=== PATIENT | male | born 1990 | race Two or more races ===

== ENCOUNTER 2016-12-04 11:42 | Emergency (ER) | payer MEDICAID ==
[2016-12-04 11:52] VITALS: RESP 16; TEMP 98.6
--- NOTE | 2016-12-04 11:58 | EDPHY ---
H & P Time Seen by Provider: 12/04/16 11:52 HPI/ROS: CHIEF COMPLAINT: Left knee swelling and pain HISTORY OF PRESENT ILLNESS: Patient is a 26-year-old male who presents emergency department with ongoing left knee swelling and pain. The patient fell skateboarding 3 days ago. "I landed on my left knee - it took the brunt of the fall." She has mild discomfort with ambulation. He is able to range his left knee with mild discomfort. He has no numbness or tingling. He did not strike his head. No loss of consciousness. No neck or back pain. REVIEW OF SYSTEMS: My complete review of systems is negative except as mentioned in the HPI. Past Medical/Surgical History: Negative Past surgical history: Negative Smoking Status: Former smoker Physical Exam: Vitals noted GENERAL: Well-appearing, in no acute distress, alert. HEAD: No evidence of trauma. EYES: PERRLA, EOMI, normal to inspection. ENT: Airway intact, normal external examination. NECK: The C-spine is nontender. NEXUS criteria is negative (no midline tenderness, no distracting injury, no altered mental status, no recent alcohol use, no focal neurologic deficit). RESPIRATORY: Clear to auscultation bilaterally, no rales, rhonchi or wheezing. CVS: Regular rate and rhythm, no rubs, murmurs, or gallops. ABDOMEN: Soft, nontender. Pelvis: Stable. No tenderness palpation. Hips full range of motion. BACK: Normal to inspection, no spinal tenderness, no spinal step off. SKIN: Normal color, warm, dry. No pallor or diaphoresis. EXTREMITIES: Right upper extremity: Atraumatic. No visible signs of trauma. No tenderness palpation. Neurovascular intact distally. Left upper extremity: Atraumatic. No visible signs of trauma. No tenderness palpation. Neurovascular intact distally. Right lower extremity: Small healing abrasion to right knee. No patellar tenderness. No tenderness palpation. Neurovascular intact distally. Left lower extremity: Patient has significant swelling around his left knee. Ecchymosis extends over his knee up his medial thigh. There is mild patellar tenderness palpation. Neurovascular intact distally. Atraumatic, neurovascularly intact distally in all extremities, pelvis is stable , hips with full range of motion, moves all extremities freely. NEURO/PSYCH: Alert and oriented, normal mood and affect, no focal deficits Constitutional: Initial Vital Signs Temperature (C) 37 C 12/04/16 11:44 Heart Rate 68 12/04/16 11:44 Respiratory Rate 16 12/04/16 11:44 Blood Pressure 155/76 H 12/04/16 11:44 O2 Sat (%) 97 12/04/16 11:44 O2 Delivery Mode Room Air Allergies/Adverse Reactions: No Known Allergies Allergy (Verified 12/04/16 11:51) Home Medications: Medication Instructions Recorded NK [No Known Home Meds] 12/04/16 Medical Decision Making - Diagnostics Imaging Results: Imaging Impressions Knee X-Ray 12/04/16 11:54 Impression: Extensive soft tissue swelling with no acute osseous findings. ED Course/Re-evaluation: In the emergency department I discussed possible etiologies with the patient. He consented to an x-ray of his left knee. Left knee x-ray was ordered. Left knee x-ray: Please refer the dictated report. Soft tissue swelling. No fracture. I discussed the result with the patient. I answered all his questions. I offered him drainage of the fluid. He refused this point. Was given an Yasmani wrap. He is given instructions to continue to move his left knee. He will follow up with Orthopedics. Differential Diagnosis: Differential includes but is not limited to fracture, dislocation, contusion, ligamentous injury, hematoma, bursitis - Data Points Medications Given: Discontinued Medications Diphtheria/Tetanus/Acell Pertussis (Boostrix) 0.5 ml IM .ONCE ONE Stop: 12/04/16 12:28 Last Admin: 12/04/16 12:38 Dose: 0.5 ml Departure - Departure Disposition: Home, Routine, Self-Care Clinical Impression: Traumatic hematoma of left knee Qualifiers: Encounter type: initial encounter Qualified Code(s): S80.02XA - Contusion of left knee, initial encounter Left knee pain Qualifiers: Chronicity: acute Qualified Code(s): M25.562 - Pain in left knee Condition: Good Instructions: Knee Pain (ED) Additional Instructions: Return with increasing pain, numbness, tingling or any other concerns. Your x- ray did not show any broken bones. Referrals: Richard Strong MD [Medical Doctor] - 5-7 days, if not improved
[2016-12-04] MEDS ORDERED: TDAP ADULT 0.5 ML INJ (BOOSTRIX) IM ONE (12:27)
[2016-12-04 13:08] VITALS: BP 147/78; PULSE 64; O2SAT 96
== END 2016-12-04 13:08 | disposition home or self-care (01) ==
LOC: CED 11:42
DX: S80.02XA Contusion of left knee, initial encounter (principal); Z23 Encounter for immunization; Z87.891 Personal history of nicotine dependence; V00.131A Fall from skateboard, initial encounter; Y99.8 Other external cause status; Y93.51 Activity, roller skating (inline) and skateboarding
CPT/HCPCS: 73564-PO